=== PATIENT | female | born 1995 ===

== ENCOUNTER 2021-08-06 21:17 | Outpatient (CLI) | payer SELFPAY ==
[2021-08-06 21:54] VITALS: BP 118/60
[2021-08-06] MEDS ORDERED: LACTATED RINGERS 500 ML IV ONE (22:57)
[2021-08-06 23:34] LABS: Basophils % (Auto) 0.1 % (0.0-1.8); Eosinophils % (Auto) 0.3 % (0.0-4.3); Hematocrit 35.8 % (30.3-42.9); Hemoglobin 11.8 gm/dl (10.1-14.3); Lymphocytes # (Auto) 0.8 K/mm3 (1.2-5.4); Lymphocytes % (Auto) 8.8 % (13.4-35.0); Mean Corpuscular HGB Conc 33 % (30-34); Mean Corpuscular Volume 91 fl (79-97); Monocytes % (Auto) 11.4 % (0.0-7.3); Platelet Count 175 K/mm3 (140-440); Red Blood Count 3.92 M/mm3 (3.65-5.03); Red Cell Distribution Width 13.9 % (13.2-15.2)
[2021-08-06 23:47] LABS: Bilirubin,Urine NEG (Negative); Blood,Urine LG (Negative); Color,Urine Yellow (Yellow); Urobilinogen,Urine < 2.0 mg/dL (<2.0)
[2021-08-06 23:50] LABS: Bacteria,Urine 4+ /HPF (Negative); Mucus,Urine 1+ /HPF
[2021-08-07 00:01] LABS: WBC,Urine > 182.0 /HPF (0.0-6.0)
[2021-08-07] MEDS ORDERED: ACETAMINOPHEN 500 MG TAB PO ONE (01:32)
--- NOTE | 2021-08-07 02:27 | Ultrasound Report ---
US OB follow up INDICATION / CLINICAL INFORMATION: Well being COMPARISON: None available. TECHNIQUE: Using a transcutaneous probe, multiple grayscale, color Doppler, and spectral Doppler imag es of the uterus and fetus were captured and stored. FINDINGS: Single cephalic fetus with heart rate of 148 bpm. Amniotic fluid index is within normal limits measuring 12.9 cm. Biparietal Diameter = 6.62 cm = 26, 5 weeks, days Head Circumference = 23.78 cm = 25, 6 weeks, days Abdominal Circumference = 21.77 cm = 26, 2 weeks, days Femur Length = 4.76 cm = 25, 6 weeks, days Average Ultrasound Age (AUA) = 26, 1 weeks, days. EDC 11/12/2021. Estimated weight = 893 g.. Growth percentile 14%. IMPRESSION: 1. Single living fetus as detailed. Signer Name: Miguel Cummins II, MD Signed: 08/07/2021 2:23 AM Workstation Name: [id number]
--- NOTE | 2021-08-07 02:28 | Ultrasound Report ---
ULTRASOUND RENAL INDICATION / CLINICAL INFORMATION: Back pain. COMPARISON: None available. FINDINGS: Right kidney measures 11.5 cm in craniocaudal dimension. The cortex measures 1.3 cm. Mild right hydro nephrosis. No acute abnormality of the right kidney is demonstrated. Left kidney measures 9.3 cm in craniocaudal dimension. The left renal cortex measures 1.4 cm. No sign ificant abnormality of the left kidney demonstrated. URINARY BLADDER: No significant abnormality. FREE FLUID: None. ADDITIONAL FINDINGS: None. IMPRESSION: 1. Mild right hydronephrosis. Signer Name: Miguel Cummins II, MD Signed: 08/07/2021 2:24 AM Workstation Name: [id number]
== END 2021-08-07 02:11 | disposition home or self-care (01) ==
LOC: TRG 21:17 → APU 21:19 → TRG 08-07 02:11
PROVIDERS: ATTEND Obstetrics & Gynecology
DX: O26.892 Other specified pregnancy related conditions, second trimester (principal); Z3A.26 26 weeks gestation of pregnancy
CPT/HCPCS: 36415; 76770; 76816; 81001; 85025

== ENCOUNTER 2021-10-16 19:57 | Outpatient (CLI) | payer SELFPAY ==
[2021-10-16 20:44] VITALS: BP 104/63
[2021-10-16] MEDS ORDERED: LACTATED RINGERS 500 ML IV ONE (20:44)
--- NOTE | 2021-10-16 21:39 | Ultrasound Report ---
ULTRASOUND BIOPHYSICAL PROFILE INDICATION: leaking fluid and decreased movement. COMPARISON: None available. FINDINGS: breathing movement = 2 Gross body movement = 2 tone = 2 Qualitative amniotic fluid volume = 2 Total biophysical score = 8/8 Amniotic fluid index is 6.5 cm. Presentation is Cephalic. heart rate is 126-171 beats per minute. Biparietal diameter 9.1 cm, 36 weeks 6 days Head circumference 31.8 cm, 35 weeks 5 days Abdominal circumference 30.7 cm, 34 weeks 4 days Femur length 7.0 cm, 35 weeks 5 days Estimated weight is 2631 g IMPRESSION: biophysical profile = 09/22 Amniotic fluid index is borderline decreased at 6.5 cm. Heart rate ranges from 126-171. Estimated weight is 2631 g Signer Name: Abdullahi Scott MD Signed: 10/16/2021 9:34 PM Workstation Name: [id number]
== END 2021-10-17 00:22 | disposition home or self-care (01) ==
LOC: TRG 19:57 → APU 20:01 → TRG 10-17 00:22
PROVIDERS: ATTEND Obstetrics & Gynecology Gynecology
DX: O47.03 False labor before 37 completed weeks of gestation, third trimester (principal); Z3A.36 36 weeks gestation of pregnancy
CPT/HCPCS: 36415; 76816; 76819; 84112

== ENCOUNTER 2021-10-31 09:34 | Inpatient (IN) | payer SELFPAY ==
[2021-10-31] MEDS ORDERED: ePHEDrine SULFATE 50 MG/1 ML INJ IV PRN ×2 (13:09→17:38)
[2021-10-31] MEDS ORDERED: TERBUTALINE 1 MG/1 ML INJ SUB-Q PRN (13:09)
[2021-10-31] MEDS ORDERED: ACETAMINOPHEN 325 MG TAB PO PRN ×2 (13:09→21:46)
[2021-10-31] MEDS ORDERED: LOPERAMIDE 2 MG CAP PO PRN (13:09)
[2021-10-31] MEDS ORDERED: MINERAL OIL 30 ML ORAL LIQD PO PRN (13:09)
[2021-10-31] MEDS ORDERED: CARBOPROST TROMETHAMINE 250 MCG/1 ML INJ IM PRN (13:09)
[2021-10-31] MEDS ORDERED: LIDOCAINE (2%) 20 MG/1 ML VIAL 20 ML MDV INFILTRATI ONE (13:09)
[2021-10-31] MEDS ORDERED: METHYLERGONOVINE MALEATE 0.2 MG/ML VIAL IM PRN (13:09)
[2021-10-31] MEDS ORDERED: BUTORPHANOL 2 MG/1 ML INJ IV PRN ×2 (13:09)
[2021-10-31] MEDS ORDERED: miSOPROStol 200 MCG TAB PR PRN (13:09)
[2021-10-31] MEDS ORDERED: OXYTOCIN 10 UNIT/1 ML INJ IM PRN (13:09)
[2021-10-31] MEDS ORDERED: LACTATED RINGERS 1,000 ML IV SCH (13:15)
--- NOTE | 2021-10-31 13:16 | History and Physical Report ---
History of Present Illness Date of examination: 10/31/21 Date of admission: Oct 31, 2021 Chief complaint: C/O contractions History of present illness: 26 Y/O at 39.0 weeks with care at [facility] presents in active labor with SROM. states she started leaking at 0730. Past History Past Medical History: no pertinent history Past Surgical History: no surgical history [employer] History: abnormal PAP smear Family/Genetic History: none Social history: no significant social history - Obstetrical History Expected Date of Delivery: 11/06/21 Actual Gestation: 39 Week(s) 1 Day(s) : 1 Para: 0 Number of Living Children: 0 Medications and Allergies Allergies Allergy/AdvReac Type Severity Reaction Status Date / Time No Known Allergies Allergy Verified 08/06/21 23:09 Review of Systems All systems: negative - Vital Signs Vital signs: Vital Signs Pulse Pulse Ox 68 97 10/31/21 10:39 10/31/21 10:39 Temp Pulse Resp BP Pulse Ox 55 L 18 110/63 97 10/31/21 13:09 10/31/21 11:04 10/31/21 11:04 10/31/21 13:09 - Physical Exam Breasts: Positive: deferred Cardiovascular: Regular rate Lungs: Positive: Clear to auscultation Abdomen: Positive: soft Genitourinary (Female): Positive: normal external genitalia Uterus: Positive: enlarged Anus/Rectum: Positive: normal perianal skin - Obstetrical FHR: category 1 Uterine Contraction Monitor Mode: External Cervical Dilatation: 6 Cervical Effacement Percentage: 90 station: -1 Uterine Contraction Pattern: Regular Uterine Contraction Intensity: Moderate Results Result Diagrams: 10/31/21 11:14 Abnormal lab results 10/31/21 Range/Units 10:50 Membranes Rupture Positive A (Negative) All other labs normal. Assessment and Plan A: 39.1 weeks active labor P:Epidural EXpect
[2021-10-31] MEDS ORDERED: OXYTOCIN DRIP 30 UNITS/500 ML BAG IV SCH ×2 (14:00)
[2021-10-31 16:33] LABS: Hematocrit 40.1 % (30.3-42.9); Hemoglobin 13.5 gm/dl (10.1-14.3); Mean Corpuscular HGB Conc 34 % (30-34); Mean Corpuscular Volume 90 fl (79-97); Platelet Count 215 K/mm3 (140-440); Red Blood Count 4.48 M/mm3 (3.65-5.03)
[2021-10-31] MEDS ORDERED: fentaNYL-BUPIV 2 MCG/ML-0.125% 200 MCG/100 ML BAG EPIDURAL SCH (17:38)
[2021-10-31] MEDS ORDERED: NALOXONE 0.4 MG/1 ML INJ IV PRN (17:38)
--- NOTE | 2021-10-31 17:40 | Progress Note ---
Labor Epidural - Labor Epidural Start Time: 17:15 Stop Time: 17:26 Performed by:: BARRIE PUENTE Procedure: Epidural Requested for Labor Pain. H&P and PT Chart reviewed and consent obtained. Time out performed and the procedure was explained, all questions answered. Patient was placed in a sitting position with monitors applied. The PTs back was prepped and draped in usual sterile fashion. The Skin was localized with 3 mL of 1% lidocaine at L3-L4. A 17-gauge Touhy epidural needle was advanced to HORACE with saline at 7 cm and no blood/CSF was noted via epidural needle. Epidural catheter was advanced to 12 cm. There was negative aspiration for blood and CSF in the catheter and negative response to a test dose of 3 ml 1.5% lidocaine w/ Epi and a sterile dressing was applied Patient tolerated the procedure well and there were no immediate complications noted.
--- NOTE | 2021-10-31 17:40 | Anesthesia Consultation ---
Anesthesia Consult and Med Hx Date of service: 10/31/21 - Airway Anesthetic Teeth Evaluation: Good ROM Head & Neck: Adequate Mental/Hyoid Distance: Inadequate Mallampati Class: Class II Intubation Access Assessment: Probably Good - Pulmonary Exam CTA: Yes - Cardiac Exam Cardiac Exam: RRR - Pre-Operative Health Status ASA Pre-Surgery Classification: ASA2 Proposed Anesthetic Plan: Epidural - Pulmonary Hx Smoking: No Hx Asthma: No Hx Respiratory Symptoms: No SOB: No COPD: No Home Oxygen Therapy: No Hx Pneumonia: No Hx Sleep Apnea: No - Cardiovascular System Hx Hypertension: No Hx Coronary Artery Disease: No Hx Heart Attack/AMI: No Hx Angina: No Hx Percutaneous Transluminal Coronary Angioplasty (PTCA): No Hx Cardia Arrhythmia: No Hx Pacemaker: No Hx Internal Defibrillator: No Hx Valvular Heart Disease: No Hx Heart Murmur: No Hx Peripheral Vascular Disease: No - Central Nervous System Hx Neuromuscular Disorder: No Hx Seizures: No CVA: No Hx Back Pain: No Hx Psychiatric Problems: No - Gastrointestinal Hx Ulcer: No Hx Gastroesophageal Reflux Disease: No - Endocrine Hx Renal Disease: Yes Hx End Stage Renal Disease: No Hx Cirrhosis: No Hx Liver Disease: No Hx Insulin Dependent Diabetes: No Hx Non-Insulin Dependent Diabetes: No Hx Thyroid Disease: No Hx Hypothyroidism: No Hx Hyperthyroidism: No - Hematic Hx Anemia: No Hx Sickle Cell Disease: No - Other Systems Hx Alcohol Use: No Hx Substance Use: No Hx Cancer: No Hx Obesity: No
--- NOTE | 2021-10-31 17:40 | Anesthesia Day of Surgery ---
Anesthesia Day of Surgery - Day of Surgery Patient Examined: Yes Patient H&P Reviewed: Yes Patient is NPO: Yes Beta Blockers: No Cardiac Clearance: No Pulmonary Clearance: No Jf's Test: N/A
--- NOTE | 2021-10-31 18:48 | Progress Note ---
Assessment and Plan A: IUP@ 39 wks SROM cl P: IUPC Low dose Pitocin Continue monitoring Anticipate Subjective - Subjective Date of service: 10/31/21 Principal diagnosis: IUP@ 39.0 Patient reports: loss of fluid, movement normal, contractions Objective - Vital Signs Vital Signs: Vital Signs - 12hr 10/31/21 10/31/21 10/31/21 10:39 10:40 10:44 Pulse Rate 68 72 66 Respiratory Rate Blood Pressure 110/63 Blood Pressure [Left] O2 Sat by Pulse 97 98 Oximetry 10/31/21 10/31/21 10/31/21 10:49 10:54 10:59 Pulse Rate 66 64 53 L Respiratory Rate Blood Pressure Blood Pressure [Left] O2 Sat by Pulse 97 98 98 Oximetry 10/31/21 10/31/21 10/31/21 11:04 11:09 11:14 Pulse Rate 72 63 62 Respiratory 18 Rate Blood Pressure Blood Pressure 110/63 [Left] O2 Sat by Pulse 98 97 98 Oximetry 10/31/21 10/31/21 10/31/21 11:19 11:24 11:29 Pulse Rate 62 60 62 Respiratory Rate Blood Pressure Blood Pressure [Left] O2 Sat by Pulse 97 98 98 Oximetry 10/31/21 10/31/21 10/31/21 11:34 11:39 11:44 Pulse Rate 68 56 L 57 L Respiratory Rate Blood Pressure Blood Pressure [Left] O2 Sat by Pulse 90 99 99 Oximetry 10/31/21 10/31/21 10/31/21 11:49 11:54 11:59 Pulse Rate 54 L 60 55 L Respiratory Rate Blood Pressure Blood Pressure [Left] O2 Sat by Pulse 99 98 96 Oximetry 10/31/21 10/31/21 10/31/21 12:04 12:09 12:14 Pulse Rate 57 L 66 63 Respiratory Rate Blood Pressure Blood Pressure [Left] O2 Sat by Pulse 98 97 98 Oximetry 10/31/21 10/31/21 10/31/21 12:19 12:24 12:29 Pulse Rate 60 60 75 Respiratory Rate Blood Pressure Blood Pressure [Left] O2 Sat by Pulse 98 98 97 Oximetry 10/31/21 10/31/21 10/31/21 12:34 12:39 12:44 Pulse Rate 63 59 L 59 L Respiratory Rate Blood Pressure Blood Pressure [Left] O2 Sat by Pulse 97 97 98 Oximetry 10/31/21 10/31/21 10/31/21 12:54 12:59 13:04 Pulse Rate 56 L 59 L 60 Respiratory Rate Blood Pressure Blood Pressure [Left] O2 Sat by Pulse 97 98 97 Oximetry 10/31/21 10/31/21 10/31/21 13:09 13:14 13:34 Pulse Rate 55 L 57 L 71 Respiratory Rate Blood Pressure 107/64 Blood Pressure [Left] O2 Sat by Pulse 97 98 Oximetry 10/31/21 10/31/21 10/31/21 17:15 17:18 17:19 Pulse Rate 64 67 70 Respiratory Rate Blood Pressure 128/72 135/71 Blood Pressure [Left] O2 Sat by Pulse 96 Oximetry 10/31/21 10/31/21 10/31/21 17:21 17:24 17:25 Pulse Rate 80 83 77 Respiratory Rate Blood Pressure 130/84 115/72 Blood Pressure [Left] O2 Sat by Pulse 98 Oximetry 10/31/21 10/31/21 10/31/21 17:27 17:30 17:35 Pulse Rate 82 77 72 Respiratory Rate Blood Pressure 123/74 118/65 123/72 Blood Pressure [Left] O2 Sat by Pulse 97 98 Oximetry 10/31/21 10/31/21 10/31/21 17:36 17:39 17:40 Pulse Rate 57 L 58 L 57 L Respiratory Rate Blood Pressure 107/58 103/57 Blood Pressure [Left] O2 Sat by Pulse 99 Oximetry 10/31/21 10/31/21 10/31/21 17:42 17:45 17:50 Pulse Rate 63 58 L 58 L Respiratory Rate Blood Pressure 108/61 101/59 Blood Pressure [Left] O2 Sat by Pulse 98 97 Oximetry 10/31/21 10/31/21 10/31/21 17:51 17:54 17:55 Pulse Rate 60 60 61 Respiratory Rate Blood Pressure 91/50 98/58 101/66 Blood Pressure [Left] O2 Sat by Pulse 97 Oximetry 10/31/21 10/31/21 10/31/21 17:57 18:00 18:03 Pulse Rate 59 L 59 L 57 L Respiratory Rate Blood Pressure 107/68 113/68 106/63 Blood Pressure [Left] O2 Sat by Pulse 97 Oximetry 10/31/21 10/31/21 10/31/21 18:05 18:06 18:09 Pulse Rate 61 57 L 62 Respiratory Rate Blood Pressure 101/61 114/67 Blood Pressure [Left] O2 Sat by Pulse 97 Oximetry 10/31/21 10/31/21 10/31/21 18:10 18:12 18:15 Pulse Rate 61 64 58 L Respiratory Rate Blood Pressure 104/67 102/65 Blood Pressure [Left] O2 Sat by Pulse 97 98 Oximetry 10/31/21 10/31/21 10/31/21 18:18 18:20 18:21 Pulse Rate 60 64 62 Respiratory Rate Blood Pressure 106/62 98/59 Blood Pressure [Left] O2 Sat by Pulse 98 Oximetry 10/31/21 10/31/21 10/31/21 18:24 18:25 18:27 Pulse Rate 59 L 60 64 Respiratory Rate Blood Pressure 99/59 108/64 Blood Pressure [Left] O2 Sat by Pulse 99 Oximetry 10/31/21 10/31/21 10/31/21 18:30 18:33 18:35 Pulse Rate 61 60 59 L Respiratory Rate Blood Pressure 98/58 114/67 Blood Pressure [Left] O2 Sat by Pulse 99 99 Oximetry 10/31/21 10/31/21 10/31/21 18:36 18:39 18:40 Pulse Rate 61 73 63 Respiratory Rate Blood Pressure 110/67 94/66 Blood Pressure [Left] O2 Sat by Pulse 99 Oximetry 10/31/21 18:42 Pulse Rate 73 Respiratory Rate Blood Pressure 95/62 Blood Pressure [Left] O2 Sat by Pulse Oximetry - Exam Breasts: deferred Abdomen: Present: normal appearance, soft, normal bowel sounds Vulva: both: normal Uterus: Present: normal FHR: auscultation normal, category 1 Uterine Contraction Monitor Mode: External Cervical Dilatation: 6 Cervical Effacement Percentage: 90 station: -2 Uterine Contraction Pattern: Irregular Uterine Tone Measurement Phase: Resting Uterine Contraction Intensity: Strong/Firm Extremities: normal - Labs Labs: Abnormal Labs 10/31/21 10/31/21 10:50 11:14 WBC 13.2 H Membranes Rupture Positive A Laboratory Results - last 24 hr 10/31/21 10/31/21 10/31/21 10:50 11:14 11:14 WBC 13.2 H RBC 4.48 Hgb 13.5 Hct 40.1 MCV 90 MCH 30 MCHC 34 RDW 15.0 Plt Count 215 Membranes Rupture Positive A Blood Type O POSITIVE Antibody Screen Negative
[2021-10-31] MEDS ORDERED: ONDANSETRON 4 MG/2 ML INJ ONE (21:23)
[2021-10-31 21:44] LABS: ABG Methemoglobin 0.8 % (0.0-1.5); ABG Oxygen Saturation 79.4 % (95.0-99.0)
--- NOTE | 2021-10-31 21:45 | Procedure Note ---
OB Delivery Note - Delivery Date of Delivery: 10/31/21 Surgeon: RJ VAN Estimated blood loss: 100cc - Vaginal Delivery presentation: vertex Delivery position: OP Intrapartum events: decreased FHT variability, mult.variable deceleratio Delivery induction: none Delivery monitor: external FHT, external uterine, internal uterine Route of delivery: vacuum extraction Indicators for instrumentation: nonreassuring FHR tracing Delivery placenta: spontaneous, expressed Delivery cord: 3 umbilical vessels Episiotomy: none Delivery laceration: none Anesthesia: epidural - Infant A at 1 minute: 8 at 5 minutes: 9 Infant Gender: Male
[2021-10-31] MEDS ORDERED: HYDROcodone/ACETAMINOPHEN 5-325 MG TAB PO PRN (21:46)
[2021-10-31] MEDS ORDERED: MAGNESIUM HYDROXIDE (MOM) ORAL LIQD UDC PO PRN (21:46)
[2021-10-31] MEDS ORDERED: LANOLIN/ZINC/DIMETHICONE (LANSINOH) 7 GM TP PRN (21:46)
[2021-10-31] MEDS ORDERED: ONDANSETRON 4 MG/2 ML INJ IV PRN (21:46)
[2021-10-31] MEDS ORDERED: PROMETHAZINE 25 MG TAB PO PRN (21:46)
[2021-10-31] MEDS ORDERED: WITCH HAZEL/ GLYCERIN PAD TP PRN (21:46)
[2021-10-31] MEDS ORDERED: PROMETHAZINE 25 MG RECT SUPP PR PRN (21:46)
[2021-10-31] MEDS ORDERED: KETOROLAC 30 MG/1 ML INJ IV PRN (21:46)
[2021-10-31] MEDS ORDERED: diphenhydrAMINE 25 MG CAP PO PRN (21:46)
[2021-10-31 21:53] LABS: ABG Base Excess TNR mmol/L (-2.0-3.0); ABG HCO3 TNR mmol/L (20.0-26.0); ABG PCO2 TNR mm Hg; ABG PH TNR pH Units (7.350-7.450); ABG PO2 TNR mm Hg (80.0-90.0)
[2021-10-31] MEDS ORDERED: SENNOSIDES/DOCUSATE SODIUM 8.6/50 MG TAB PO SCH (22:00)
[2021-11-01] MEDS: IBUPROFEN 600 MG TAB PO SCH ×5 (01:25→22:32)
--- NOTE | 2021-11-01 09:50 | Progress Note ---
Assessment and Plan A: PPD # 1 - stable P: Plan discharge home in am Discharge instructions given Subjective - Subjective Date of service: 11/01/21 Principal diagnosis: PPD #1 - stable Interval history: Feeling good, no complaints Patient reports: appetite normal [place]: in NICU Objective - Vital Signs Latest vital signs: Vital Signs Temp Pulse Resp BP BP Pulse Ox 11/01/21 08:19 98.3 F 62 16 97/51 100 11/01/21 02:20 98.3 F 18 105/60 98 10/31/21 22:35 67 98 10/31/21 22:30 95 H 109/55 99 10/31/21 22:28 82 93 10/31/21 22:25 74 99 10/31/21 22:20 70 97 10/31/21 22:18 76 90 10/31/21 22:15 73 122/58 96 10/31/21 22:11 67 91 10/31/21 22:10 62 99 10/31/21 22:05 69 89 10/31/21 22:00 66 136/63 99 10/31/21 21:55 82 90 10/31/21 21:52 77 87 10/31/21 21:50 73 99 10/31/21 21:46 68 120/70 10/31/21 21:45 71 99 10/31/21 21:40 78 99 10/31/21 21:35 93 H 98 10/31/21 21:30 77 99 10/31/21 21:25 85 99 10/31/21 21:24 90 125/60 10/31/21 21:20 90 99 10/31/21 21:15 67 92 10/31/21 21:11 92 H 86 10/31/21 21:10 75 97 10/31/21 21:05 62 98 10/31/21 21:04 77 118/60 10/31/21 21:03 62 84 10/31/21 21:00 98.0 F 77 17 118/60 98 10/31/21 20:56 92 H 92 10/31/21 20:55 75 99 10/31/21 20:50 72 98 10/31/21 20:45 59 L 99 10/31/21 20:40 55 L 100 10/31/21 20:39 54 L 114/62 10/31/21 20:35 93 H 96 10/31/21 20:34 82 93 10/31/21 20:30 61 114/66 100 10/31/21 20:25 59 L 100 10/31/21 20:24 59 L 142/67 10/31/21 20:22 65 135/61 10/31/21 20:20 78 97 10/31/21 20:15 62 100 10/31/21 20:12 68 90 10/31/21 20:10 75 98 10/31/21 20:06 58 L 116/70 10/31/21 20:05 58 L 100 10/31/21 20:03 56 L 126/75 10/31/21 20:00 56 L 121/74 100 10/31/21 19:57 56 L 119/73 10/31/21 19:55 56 L 100 10/31/21 19:54 55 L 119/71 10/31/21 19:51 55 L 121/72 10/31/21 19:50 55 L 100 10/31/21 19:48 55 L 116/72 10/31/21 19:45 55 L 114/70 100 10/31/21 19:42 54 L 117/72 10/31/21 19:40 57 L 100 10/31/21 19:39 56 L 126/73 10/31/21 19:36 54 L 119/69 10/31/21 19:35 56 L 100 10/31/21 19:33 54 L 129/64 10/31/21 19:30 65 100 10/31/21 19:27 55 L 124/65 10/31/21 19:25 57 L 100 10/31/21 19:24 50 L 129/68 10/31/21 19:21 49 L 124/60 10/31/21 19:20 52 L 100 10/31/21 19:18 54 L 118/58 10/31/21 19:15 60 120/64 100 10/31/21 19:12 55 L 136/67 10/31/21 19:10 64 100 10/31/21 19:09 54 L 126/70 10/31/21 19:06 55 L 130/67 10/31/21 19:05 71 100 10/31/21 19:04 60 131/60 10/31/21 19:00 54 L 118/64 99 10/31/21 18:57 61 117/75 09/16/22 18:55 64 100 10/31/21 18:54 73 96/51 10/31/21 18:51 72 109/61 10/31/21 18:50 62 99 10/31/21 18:48 62 104/62 10/31/21 18:45 56 L 110/63 98 10/31/21 18:42 73 95/62 10/31/21 18:40 63 99 10/31/21 18:39 73 94/66 10/31/21 18:36 61 110/67 10/31/21 18:35 59 L 99 10/31/21 18:33 60 114/67 10/31/21 18:30 61 98/58 99 10/31/21 18:27 64 108/64 10/31/21 18:25 60 99 10/31/21 18:24 59 L 99/59 10/31/21 18:21 62 98/59 10/31/21 18:20 64 98 10/31/21 18:18 60 106/62 10/31/21 18:15 58 L 102/65 98 10/31/21 18:12 64 104/67 10/31/21 18:10 61 97 10/31/21 18:09 62 114/67 10/31/21 18:06 57 L 101/61 10/31/21 18:05 61 97 10/31/21 18:03 57 L 106/63 10/31/21 18:00 59 L 113/68 97 10/31/21 17:57 59 L 107/68 10/31/21 17:55 61 101/66 97 10/31/21 17:54 60 98/58 10/31/21 17:51 60 91/50 10/31/21 17:50 58 L 97 10/31/21 17:45 58 L 101/59 98 10/31/21 17:42 63 108/61 10/31/21 17:40 57 L 99 10/31/21 17:39 58 L 103/57 10/31/21 17:36 57 L 107/58 10/31/21 17:35 72 123/72 98 10/31/21 17:30 77 118/65 97 10/31/21 17:27 82 123/74 10/31/21 17:25 77 98 10/31/21 17:24 83 115/72 10/31/21 17:21 80 130/84 10/31/21 17:19 70 96 10/31/21 17:18 67 135/71 10/31/21 17:15 64 128/72 10/31/21 13:34 71 107/64 10/31/21 13:14 57 L 98 10/31/21 13:09 55 L 97 10/31/21 13:04 60 97 10/31/21 12:59 59 L 98 10/31/21 12:54 56 L 97 10/31/21 12:44 59 L 98 10/31/21 12:39 59 L 97 10/31/21 12:34 63 97 10/31/21 12:29 75 97 10/31/21 12:24 60 98 10/31/21 12:19 60 98 10/31/21 12:14 63 98 10/31/21 12:09 66 97 10/31/21 12:04 57 L 98 10/31/21 11:59 55 L 96 10/31/21 11:54 60 98 10/31/21 11:49 54 L 99 10/31/21 11:44 57 L 99 10/31/21 11:39 56 L 99 10/31/21 11:34 68 90 10/31/21 11:29 62 98 10/31/21 11:24 60 98 10/31/21 11:19 62 97 10/31/21 11:14 62 98 10/31/21 11:09 63 97 10/31/21 11:04 72 18 110/63 98 10/31/21 10:59 53 L 98 10/31/21 10:54 64 98 10/31/21 10:49 66 97 10/31/21 10:44 66 98 10/31/21 10:40 72 110/63 10/31/21 10:39 68 97 Intake and Output 10/31/21 11/01/21 11/01/21 22:59 06:59 14:59 Output Total 800 Balance -800 Output: Urine 800 Straight 800 Other: # Voids Void 1 Estimated Blood Loss 100 - Exam Breasts: Present: deferred Cardiovascular: Present: Regular rate Lungs: Present: Clear to auscultation Abdomen: Present: soft Vulva: both: normal Uterus: Present: fundal height below umbilicus Extremities: Present: normal Deep Tendon Reflex Grade: Normal +2 - Labs Labs: Abnormal lab results 10/31/21 10/31/21 10/31/21 Range/Units 10:50 11:14 21:05 WBC 13.2 H (4.5-11.0) K/mm3 ABG O2 Saturation 79.4 L (95.0-99.0) % ABG Hemoglobin 17.0 H (12.0-16.0) gm/dl Oxyhemoglobin 77.9 L (95.0-99.0) % Membranes Rupture Positive A (Negative)
--- NOTE | 2021-11-01 09:53 | Discharge Summary ---
Providers - Providers Date of Admission: 10/31/21 13:10 Date of discharge: 11/02/21 Attending physician: HESHAM HAUSER MD Primary care physician: HESHAM HAUSER MD Hospitalization Reason for admission: active labor Delivery: vacuum extraction Episiotomy: none Laceration: none Other procedures: none complications: none Discharge diagnosis: IUP at term delivered [place] baby: male Hospital course: uneventful course Condition at discharge: Good Disposition: 01 HOME / SELF CARE / HOMELESS Plan - Provider Discharge Summary Activity: routine, no sex for 6 weeks, no strenuous exercise Diet: routine Instructions: routine Additional instructions: [] Smoking cessation referral if applicable(refer to patient education folder for contact #) [] Refer to [facility]'s [facility] Booklet Call your doctor immediately for: * Fever > 100.5 * Heavy vaginal bleeding ( >1 pad per hour) * Severe persistent headache * Shortness of breath * Reddened, hot, painful area to leg or breast * Drainage or odor from incision. * Keep incision clean and dry at all times and follow doctor's instructions regarding bathing/showering - Follow up plan Follow up: HESHAM HAUSER MD [Primary Care Provider] - 6 Weeks
[2021-11-01] MEDS ORDERED: PRENATAL VIT27-FE FUMARATE-FOLIC ACID VIT TAB PO SCH (10:00)
[2021-11-01 10:18] LABS: Hematocrit 34.6 % (30.3-42.9); Hemoglobin 11.4 gm/dl (10.1-14.3)
[2021-11-01] MEDS: DOCUSATE SODIUM 100 MG CAP PO SCH ×2 (10:41→22:31)
[2021-11-02 09:37] VITALS: BP 102/61
--- NOTE | 2021-11-02 13:13 | Post Anesthesia Evaluation ---
- Post Anesthesia Evaluation Patient Participated: Yes Airway Patent: Yes Stable Respiratory Function: Yes Nausea/Vomiting: No Temp > 96.8F: Yes Pain Manageable: Yes Adequeate Hydration: Yes Anesthesia Complications: No Block Receding Appropriately: Yes Patient on Ventilator: No
== END 2021-11-02 10:30 | disposition home or self-care (01) | DRG 807 ==
LOC: TRG 09:34 → APU 09:36 → LD 13:26 → TRG 14:30 → LD 15:41 → OB 11-01 02:32
PROVIDERS: ADMIT Obstetrics & Gynecology Gynecology; ATTEND Obstetrics & Gynecology Gynecology
PROC: 10D07Z6 Extraction of Products of Conception, Vacuum, Via Natural or Artificial Opening (ICD-10-PCS; principal; 2021-10-31)
PROC: 3E0R3BZ Introduction of Anesthetic Agent into Spinal Canal, Percutaneous Approach (ICD-10-PCS; 2021-10-31)
PROC: 00HU33Z Insertion of Infusion Device into Spinal Canal, Percutaneous Approach (ICD-10-PCS; 2021-10-31)
DX: O76 Abnormality in fetal heart rate and rhythm complicating labor and delivery (principal); Z37.0 Single live birth; Z20.822 Contact with and (suspected) exposure to COVID-19; Z3A.39 39 weeks gestation of pregnancy
CPT/HCPCS: 36415; 59025; 82803; 84112; 85014; 85018; 85027; 86850; 86900; 86901; 88307; G0378; J3490; J0595; J2405; U0003